=== PATIENT | female | born 2000 | race Caucasian/White ===

== ENCOUNTER 2020-06-23 11:06 | Emergency (ER) | payer OTHER, BC ==
[~2020-06-23] VITALS: Ht 170.2 cm; Wt 121.8 kg
[2020-06-23 11:06] VITALS: BP 147/83
[~2020-06-23 11:06] MED LIST: AMOX1TAB11 PO; DOCU-153 PO; HYDR-2761 PO; IBUP-1007 PO
[2020-06-23] MEDS ORDERED: ONDANSETRON PF 4 MG/2 ML VIAL. IVP ONE (11:45)
[2020-06-23] MEDS ORDERED: IV NORMAL SALINE 1000ML BAG 1,000 ML IV SCH (11:45)
[2020-06-23] MEDS ORDERED: MORPHINE SULFATE 4 MG/ML VIAL. IV/SQ PRN ×2 (11:45)
[2020-06-23 11:49] LABS: BASO # 0.1 x10^3/uL (0.0-0.2); BASO % 1 % (0-3); EOS # 0.3 x10^3/uL (0.0-0.7); EOS % 3 % (0-3); HEMATOCRIT 34.6 % (36.0-47.0); HEMOGLOBIN 11.9 g/dL (12.0-15.5); LYMPH # 1.9 x10^3/uL (1.0-4.8); LYMPH % 18 % (24-48); MEAN CORPUSCULAR HEMOGLOBIN 28 pg (25-35); MEAN CORPUSCULAR HGB CONC 35 g/dL (31-37); MEAN CORPUSCULAR VOLUME 81 fL (79-100); MONO # 0.9 x10^3/uL (0.0-1.1); MONO % 9 % (0-9); NEUT # 7.4 x10^3/uL (1.8-7.7); NEUT % 71 % (31-73); PLATELET COUNT 380 x10^3/uL (140-400); RED BLOOD COUNT 4.26 x10^6/uL (3.50-5.40); RED CELL DISTRIBUTION WIDTH 12.9 % (11.5-14.5); WHITE BLOOD COUNT 10.6 x10^3/uL (4.0-11.0)
[2020-06-23 12:10] LABS: CALCIUM 8.6 mg/dL (8.5-10.1); CREATININE 0.7 mg/dL (0.6-1.0); GFR 105.6; POTASSIUM 3.6 mmol/L (3.5-5.1)
[2020-06-23 12:12] LABS: BILIRUBIN,URINE NEGATIVE (NEG); CLARITY,URINE CLEAR; COLOR,URINE YELLOW; NITRITE,URINE NEGATIVE (NEG); PROTEIN,URINE NEGATIVE (NEG-TRACE); UROBILINOGEN,URINE 0.2 mg/dL (0.2 mg/dL)
[2020-06-23 12:15] LABS: BACTERIA,URINE 0 /HPF (0-FEW); RBC,URINE 0 /HPF (0-2)
[2020-06-23 12:16] LABS: ALBUMIN 3.3 g/dL (3.4-5.0); ALBUMIN/GLOBULIN RATIO 0.9 (1.0-1.7); TOTAL BILIRUBIN 0.8 mg/dL (0.2-1.0)
--- NOTE | 2020-06-23 12:22 | RAD ---
Portable supine and upright abdomen. HISTORY: Syncope, recent appendectomy, abdominal pain Portable supine and upright views were taken of the abdomen. The upright view was only semiupright as there is no fluid level noted in the stomach but there is gas and fluid in the stomach. There is a n onspecific gas pattern with small bowel gas in colon gas most consistent with an ileus. A definite sm all bowel obstruction is not identified. I cannot evaluate for free air. Right hemidiaphragm is not e ntirely included on the upright view. IMPRESSION: 1. Limited portable views of the abdomen. 2. Mild small bowel and colon gas probably ileus. Electronically signed by: Luis Torres MD (06/23/2020 12:20 PM) [id number]
--- NOTE | 2020-06-23 13:16 | EKG ---
[facility] [address] [place] [address] Test Date: 2020-06-23 Test Time: 12:18:02 Pat Name: DORON CLARKE Department: Room: Gender: F Neurology Hospitalist: : 2000 Requested By: SANJUANA BAL Order Number: [id number] Reading MD: Measurements Intervals Fletcher Rate: 94 P: 44 NM: 160 QRS: 55 QRSD: 80 T: 37 QT: 338 QTc: 423 Interpretive Statements SINUS RHYTHM NORMAL ECG RI6.02 No previous ECG available for comparison
[2020-06-23] MEDS ORDERED: HYDROcodone/APAP 5/325MG 1 TAB TABLET PO ONE (13:30)
--- NOTE | 2020-06-23 13:52 | PHYS DOC ---
Past Medical History Past Medical History: Anxiety, Other Additional Past Medical Histor: PCOS (SANJUANA BAL CAREER DEVELOPMENT COORDINATOR/TEACHER) Past Surgical History: Appendectomy (SANJUANA BAL CAREER DEVELOPMENT COORDINATOR/TEACHER) Smoking Status: Current Some Day Smoker Alcohol Use: Sober (SANJUANA BAL CAREER DEVELOPMENT COORDINATOR/TEACHER) General Adult EDM: Chief Complaint: POST-OP PROBLEM HPI: HPI: Patient is a 20 year old female who presents the ED today complaining of a presyncope event. Patient is also complaining of generalized abdominal pain. Patient states on 20 June which is roughly 4 days ago she had a laparoscopic appendectomy done at this hospital. She states she was discharged yesterday. She states this morning she woke up and felt dizzy, lightheaded, she states she feels dehydrated. She states she almost passed out. Patient states she has continued to have mild to moderate generalized abdominal pain but well cont rolled with hydrocodone she is taking for pain, she states this pain is similar to the pain she had before the appendectomy. She states the pain is worse on touching her abdomen. I walked into the room while RN was doing an IV. She refused IV requesting the nurse to remove it. (SANJUANA BAL CAREER DEVELOPMENT COORDINATOR/TEACHER) Review of Systems: Review of Systems: Constitutional: Denies fever or chills. [] Eyes: Denies change in visual acuity. [] HENT: Denies nasal congestion or sore throat. [] Respiratory: Denies cough or shortness of breath. [] Cardiovascular: Reports of presyncope episode denies chest pain or edema. [] GI: Reports generalized abdominal pain, denies nausea, vomiting, bloody stools or diarrhea. [] : Denies dysuria. [] Musculoskeletal: Denies back pain or joint pain. [] Integument: Denies rash. [] Neurologic: Denies headache, focal weakness or sensory changes. [] Psychiatric: Denies depression or anxiety. [] (SANUJANA BAL CAREER DEVELOPMENT COORDINATOR/TEACHER) Heart Score: C/O Chest Pain: N/A Risk Factors: Risk Factors: DM, Current or recent (<one month) smoker, HTN, HLP, family history of CAD, obesity. Risk Scores: Score 0 - 3: 2.5% MACE over next 6 weeks - Discharge Home Score 4 - 6: 20.3% MACE over next 6 weeks - Admit for Clinical Observation Score 7 - 10: 72.7% MACE over next 6 weeks - Early Invasive Strategies (SANJUANA BAL CAREER DEVELOPMENT COORDINATOR/TEACHER) Current Medications: Current Medications Medications (Trade) Dose Ordered Sig/Ariella Start Time Stop Time Status Last Admin Dose Admin Acetaminophen/ Hydrocodone Bitart (Lortab 5/325) 2 tab 1X ONCE 06/23/20 13:30 06/23/20 13:31 DC Morphine Sulfate (Morphine Sulfate) 4 mg PRN Q15MIN PRN 06/23/20 11:45 06/24/20 11:44 Ondansetron HCl (Zofran) 4 mg 1X ONCE 06/23/20 11:45 06/23/20 11:46 DC Sodium Chloride 1,000 ml @ 1,860 mls/hr Q33M 06/23/20 11:45 06/23/20 12:45 DC (SANJUANA BAL CAREER DEVELOPMENT COORDINATOR/TEACHER) Allergies: Allergies: Allergies Coded Allergies Type Severity Reaction Last Updated Verified No Known Drug Allergies 06/20/20 No (SANJUANA BAL APRN) Physical Exam: PE: Interval fast Constitutional: Well developed, well nourished, no acute distress, non-toxic appearance. [] HENT: Normocephalic, atraumatic, bilateral external ears normal, oropharynx moist, no oral exudates, nose normal. [] Eyes: PERRLA, EOMI, conjunctiva normal, no discharge. [] Neck: Normal range of motion, no tenderness, supple, no stridor. [] Cardiovascular:Heart rate regular rhythm, no murmur [] Lungs & Thorax: Bilateral breath sounds clear to auscultation [] Abdomen: Rounded abdomen. Abdominal incisions noted consistent with laparotomy appendectomy. No signs of infection. Bowel sounds normal, soft, incisional tenderness on the abdomen, no masses, no pulsatile masses. [] Skin: Warm, dry, no erythema, no rash. [] Back: No tenderness, no CVA tenderness. [] Extremities: No tenderness, no cyanosis, no clubbing, ROM intact, no edema. [] Neurologic: Alert and oriented X 3, normal motor function, normal sensory function, no focal deficits noted. Cranial nerves II through XII intact Psychologic: Affect normal, judgement normal, mood normal. [] (SANJUANA BAL CAREER DEVELOPMENT COORDINATOR/TEACHER) Current Patient Data: Labs: Laboratory Tests Test 06/23/20 11:20 White Blood Count 10.6 x10^3/uL (4.0-11.0) Red Blood Count 4.26 x10^6/uL (3.50-5.40) Hemoglobin 11.9 g/dL (12.0-15.5) L Hematocrit 34.6 % (36.0-47.0) L Mean Corpuscular Volume 81 fL (79-100) Mean Corpuscular Hemoglobin 28 pg (25-35) Mean Corpuscular Hemoglobin Concent 35 g/dL (31-37) Red Cell Distribution Width 12.9 % (11.5-14.5) Platelet Count 380 x10^3/uL (140-400) Neutrophils (%) (Auto) 71 % (31-73) Lymphocytes (%) (Auto) 18 % (24-48) L Monocytes (%) (Auto) 9 % (0-9) Eosinophils (%) (Auto) 3 % (0-3) Basophils (%) (Auto) 1 % (0-3) Neutrophils # (Auto) 7.4 x10^3/uL (1.8-7.7) Lymphocytes # (Auto) 1.9 x10^3/uL (1.0-4.8) Monocytes # (Auto) 0.9 x10^3/uL (0.0-1.1) Eosinophils # (Auto) 0.3 x10^3/uL (0.0-0.7) Basophils # (Auto) 0.1 x10^3/uL (0.0-0.2) Urine Collection Type Unknown Urine Color Yellow Urine Clarity Clear Urine pH 8.0 (<5.0-8.0) Urine Specific [place] 1.010 (1.000-1.030) Urine Protein Negative mg/dL (NEG-TRACE) Urine Glucose (UA) Negative mg/dL (NEG) Urine Ketones (Stick) Negative mg/dL (NEG) Urine Blood Negative (NEG) Urine Nitrite Negative (NEG) Urine Bilirubin Negative (NEG) Urine Urobilinogen Dipstick 0.2 mg/dL (0.2 mg/dL) Urine Leukocyte Esterase Negative (NEG) Urine RBC 0 /HPF (0-2) Urine WBC 1-4 /HPF (0-4) Urine Squamous Epithelial Cells Many /LPF Urine Bacteria 0 /HPF (0-FEW) Urine Mucus Slight /LPF Sodium Level 140 mmol/L (136-145) Potassium Level 3.6 mmol/L (3.5-5.1) Chloride Level 103 mmol/L (98-107) Carbon Dioxide Level 26 mmol/L (21-32) Anion Gap 11 (6-14) Blood Urea Nitrogen 7 mg/dL (7-20) Creatinine 0.7 mg/dL (0.6-1.0) Estimated GFR (Cockcroft-Gault) 105.6 BUN/Creatinine Ratio 10 (6-20) Glucose Level 102 mg/dL (70-99) H Lactic Acid Level 1.5 mmol/L (0.4-2.0) Calcium Level 8.6 mg/dL (8.5-10.1) Total Bilirubin 0.8 mg/dL (0.2-1.0) Aspartate Amino Transferase (AST) 65 U/L (15-37) H Alanine Aminotransferase (ALT) 113 U/L (14-59) H Alkaline Phosphatase 51 U/L (46-116) Troponin I Quantitative < 0.017 ng/mL (0.000-0.055) FQ-Wef-S-Type Natriuretic Peptide 240 pg/mL (0-124) H Total Protein 7.0 g/dL (6.4-8.2) Albumin 3.3 g/dL (3.4-5.0) L Albumin/Globulin Ratio 0.9 (1.0-1.7) L Procalcitonin < 0.10 ng/mL (0.00-0.10) Laboratory Tests 06/23/20 11:20 Laboratory Tests 06/23/20 11:20 Vital Signs: Vital Signs Date Time Temp Pulse Resp B/P (MAP) Pulse Ox O2 Delivery O2 Flow Rate FiO2 06/23/20 11:06 97.5 95 16 147/83 (104) 99 Room Air 97.5 (SANJUANA BAL CAREER DEVELOPMENT COORDINATOR/TEACHER) EKG: EK interpreted by Dr. Parson sinus rhythm heart rate 94 no STEMI [] (SANJUANA BAL CAREER DEVELOPMENT COORDINATOR/TEACHER) Radiology/Procedures: Radiology/Procedures: []PROCEDURE: ABDOMEN SUPINE & UPRIGHT Portable supine and upright abdomen. HISTORY: Syncope, recent appendectomy, abdominal pain Portable supine and upright views were taken of the abdomen. The upright view was only semiupright as there is no fluid level noted in the stomach but there is gas and fluid in the stomach. There is a nonspecific gas pattern with small bowel gas in colon gas most consistent with an ileus. A definite small bowel obstruction is not identified. I cannot evaluate for free air. Right antoinette diaphragm is not entirely included on the upright view. IMPRESSION: 1. Limited portable views of the abdomen. 2. Mild small bowel and colon gas probably ileus. Electronically signed by: Luis Torres MD (06/23/2020 12:20 PM) [id number] DICTATED and SIGNED BY: LUIS TORRES MD DATE: 06/23/20 [id number] (SANJUANA BAL CAREER DEVELOPMENT COORDINATOR/TEACHER) Course & Med Decision Making: Course & Med Decision Making Pertinent Labs and Imaging studies reviewed. (See chart for details) This is a 20-year-old female patient presented to the ED today complaining of a presyncope event as well as abdominal pain. Patient had laparoscopic append ectomy done 06/20/2020 and was discharged from the hospital yesterday. Patient refused IV in the ED. Labs were negative for any acute findings. Acute abdominal series was noted for an ileus. Spoke to patient about management of this ileus especially the need to mobilize, push fluids, increase dietary fiber intake, take MiraLAX and a stool softener. They have been recommended if she can take milk of magnesium today. Spoke with Dr. Simpson. Patient should follow-up in clinic next week (SANJUANA BAL CAREER DEVELOPMENT COORDINATOR/TEACHER) Dragon Disclaimer: Dragon Disclaimer: This electronic medical record was generated, in whole or in part, using a voice recognition dictation system. (SANJUANA BAL CAREER DEVELOPMENT COORDINATOR/TEACHER) Departure Departure Impression: Primary Impression: Pre-syncope Additional Impressions: Dehydration Ileus Disposition: 01 DC HOME SELF CARE/HOMELESS Condition: STABLE Referrals: NO PCP (PCP) MAYNOR SIMPSON MD follow up next week Patient Instructions: Abdominal Pain, Dehydration, Adult, [id number], Ileus Additional Instructions: Please try and push fluids, you were noted to have an illeus, this condition is very common after people having surgery. Their bowels start to slow down as they get constipated. We encourage you to get up and move frequently. We encourage you to increase your dietary fiber intake. Consider taking MiraLAX d aily as well as a stool softener. You may consider taking milk of magnesium today. Please follow-up with Dr. Simpson next week. Come back to the emergency room at any point symptoms worsen. Attending Signature Attending Signature I have reviewed the PA/PROFESSOR OF SPORT MANAGEMENT's note and plan of care. I was available for consultation as needed during the patient's visit in the emergency department. I agree with the clinical impression, plan, and disposition. (CLAYTON PARSON DO) SANJUANA BAL CAREER DEVELOPMENT COORDINATOR/TEACHER Jun 23, 2020 13:52 CLAYTON PARSON DO Jun 25, 2020 16:17
== END 2020-06-23 14:36 | disposition home or self-care (01) ==
LOC: ER 11:06
DX: K56.7 Ileus, unspecified (principal); E86.0 Dehydration; R55 Syncope and collapse; R42 Dizziness and giddiness; F41.9 Anxiety disorder, unspecified; Z90.89 Acquired absence of other organs; Z87.891 Personal history of nicotine dependence
CPT/HCPCS: 36415; 74021; 80053; 81001; 83605; 83880; 84145; 84484; 85025; 87040; 93005; 99285

== ENCOUNTER 2020-11-22 05:11 | Emergency (ER) | payer OTHER, BC ==
[~2020-11-22] VITALS: Ht 170.2 cm; Wt 130.0 kg
[~2020-11-22 05:11] MED LIST changes: +DOCU-148 PO; -DOCU-153 PO
[2020-11-22] MEDS ORDERED: IV NORMAL SALINE 1000ML BAG 1,000 ML IV ONE (05:45)
--- NOTE | 2020-11-22 05:58 | PHYS DOC ---
Past Medical History Past Medical History: Anxiety, Other Additional Past Medical Histor: PCOS, Fatty liver nonalcoholic (SADE JACOBS DO) Past Surgical History: Appendectomy (SADE JACOBS DO) Smoking Status: Never Smoker Alcohol Use: None (SADE JACOBS DO) General Adult EDM: Chief Complaint: WEAKNESS/GENERALIZED HPI: HPI: Patient is a 20 year old female who was brought here by EMS from her work after she experienced an episode of nausea vomiting with generalized weakness. 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 Patient has been at work for about 11-hours, she will be done at 6:30 AM. Patient certainly felt nauseous, vomited one time then start to have generalized weakness. Patient feels like both her upper and lower extremities are heavy, she could not lift them up. Patient denies any headache, patient denies any slurred speech, denies any memory problems, denies any blurry vision. Patient has history of polycystic ovarian syndrome. She denies any history of diabetic. (SADE JACOBS DO) Review of Systems: Review of Systems: Constitutional: Denies fever or chills. [] Eyes: Denies change in visual acuity. [] HENT: Denies nasal congestion or sore throat. [] Respiratory: Denies cough or shortness of breath. [] Cardiovascular: Denies chest pain or edema. [] GI: Denies abdominal pain, bloody stools or diarrhea. Positive for nausea vomiting : Denies dysuria. [] Musculoskeletal: Denies back pain or joint pain. [] Integument: Denies rash. [] Neurologic: Denies headache, focal weakness or sensory changes. [] Endocrine: Positive for generalized weakness Lymphatic: Denies swollen glands. [] Psychiatric: Denies depression or anxiety. [] (SADE JACOBS DO) Heart Score: C/O Chest Pain: N/A Risk Factors: Risk Factors: DM, Current or recent (<one month) smoker, HTN, HLP, family history of CAD, obesity. Risk Scores: Score 0 - 3: 2.5% MACE over next 6 weeks - Discharge Home Score 4 - 6: 20.3% MACE over next 6 weeks - Admit for Clinical Observation Score 7 - 10: 72.7% MACE over next 6 weeks - Early Invasive Strategies (SADE JACOBS DO) Allergies: Allergies: Allergies Coded Allergies Type Severity Reaction Last Updated Verified No Known Drug Allergies 06/20/20 No (SADE JACOBS DO) Physical Exam: PE: Constitutional: Well developed, well nourished, no acute distress, non-toxic appearance. [] HENT: Normocephalic, atraumatic, bilateral external ears normal, oropharynx moist, no oral exudates, nose normal. [] Eyes: PERRLA, EOMI, conjunctiva normal, no discharge. [] Neck: Normal range of motion, no tenderness, supple, no stridor. [] Cardiovascular:Heart rate regular rhythm, no murmur [] Lungs & Thorax: Bilateral breath sounds clear to auscultation [] Abdomen: Bowel sounds normal, soft, no tenderness, no masses, no pulsatile masses. [] Skin: Warm, dry, no erythema, no rash. [] Back: No tenderness, no CVA tenderness. [] Extremities: No tenderness, no cyanosis, no clubbing, ROM intact, no edema. [] Neurologic: Alert and oriented X 3,normal sensory function, no focal deficits noted. Patient can move all extremities but very slow and weak. Normal speech Psychologic: Affect normal, judgement normal, mood normal. [] (SADE JACOBS DO) Current Patient Data: Vital Signs: Vital Signs Date Time Temp Pulse Resp B/P (MAP) Pulse Ox O2 Delivery O2 Flow Rate FiO2 11/22/20 05:18 98.4 103 139/69 (104) 97 Room Air 98.4 (SADE JACOBS DO) EKG: EKG: [] (SADE JACOBS DO) Radiology/Procedures: Radiology/Procedures: [] (SADE JACOBS DO) Course & Med Decision Making: Course & Med Decision Making Pertinent Labs and Imaging studies reviewed. (See chart for details) Patient is a 20-year-old female who was brought here by EMS from her workplace due to generalized weakness. Patient is awake alert oriented, she had normal speech, patient had normal sensation, patient has generalized weakness. Patient care was endorsed to the incoming physician at shift change Dr. Jannie Krause. (SADE JACOBS DO) Course & Med Decision Making I assumed care from Dr. Jacobs at 0 600, pending lab work Patient was reassessed at 0 810, patient states she feels much better, she says she is appropriate for discharge and will follow up with her primary care doctor. She has no acute concerns at this time Laboratory Tests Test 11/22/20 05:53 11/22/20 07:39 11/22/20 07:45 White Blood Count 11.5 x10^3/uL (4.0-11.0) Red Blood Count 4.95 x10^6/uL (3.50-5.40) Hemoglobin 14.1 g/dL (12.0-15.5) Hematocrit 40.2 % (36.0-47.0) Mean Corpuscular Volume 81 fL (79-100) Mean Corpuscular Hemoglobin 29 pg (25-35) Mean Corpuscular Hemoglobin Concent 35 g/dL (31-37) Red Cell Distribution Width 13.8 % (11.5-14.5) Platelet Count 399 x10^3/uL (140-400) Neutrophils (%) (Auto) 62 % (31-73) Lymphocytes (%) (Auto) 27 % (24-48) Monocytes (%) (Auto) 9 % (0-9) Eosinophils (%) (Auto) 2 % (0-3) Basophils (%) (Auto) 1 % (0-3) Neutrophils # (Auto) 7.1 x10^3/uL (1.8-7.7) Lymphocytes # (Auto) 3.0 x10^3/uL (1.0-4.8) Monocytes # (Auto) 1.0 x10^3/uL (0.0-1.1) Eosinophils # (Auto) 0.2 x10^3/uL (0.0-0.7) Basophils # (Auto) 0.1 x10^3/uL (0.0-0.2) Sodium Level 139 mmol/L (136-145) Potassium Level 3.8 mmol/L (3.5-5.1) Chloride Level 102 mmol/L (98-107) Carbon Dioxide Level 28 mmol/L (21-32) Anion Gap 9 (6-14) Blood Urea Nitrogen 10 mg/dL (7-20) Creatinine 0.9 mg/dL (0.6-1.0) Estimated GFR (Cockcroft-Gault) 79.0 BUN/Creatinine Ratio 11 (6-20) Glucose Level 119 mg/dL (70-99) Calcium Level 8.9 mg/dL (8.5-10.1) Magnesium Level 1.9 mg/dL (1.8-2.4) Total Bilirubin 0.4 mg/dL (0.2-1.0) Aspartate Amino Transf (AST/SGOT) 39 U/L (15-37) Alanine Aminotransferase (ALT/SGPT) 95 U/L (14-59) Alkaline Phosphatase 74 U/L (46-116) Total Protein 7.3 g/dL (6.4-8.2) Albumin 3.8 g/dL (3.4-5.0) Albumin/Globulin Ratio 1.1 (1.0-1.7) Lipase 86 U/L (73-393) Urine Collection Type Unknown Urine Color Yellow Urine Clarity Clear Urine pH 5.5 (<5.0-8.0) Urine Specific [place] 1.025 (1.000-1.030) Urine Protein Negative mg/dL (NEG-TRACE) Urine Glucose (UA) Negative mg/dL (NEG) Urine Ketones (Stick) 15 mg/dL (NEG) Urine Blood Negative (NEG) Urine Nitrite Negative (NEG) Urine Bilirubin Negative (NEG) Urine Urobilinogen Dipstick 0.2 mg/dL (0.2 mg/dL) Urine Leukocyte Esterase Negative (NEG) Urine RBC Occ /HPF (0-2) Urine WBC 5-10 /HPF (0-4) Urine Squamous Epithelial Cells Many /LPF Urine Bacteria Few /HPF (0-FEW) Urine Mucus Mod /LPF Urine Yeast Present /HPF Bedside Urine HCG, Qualitative Hcg negative (Negative) (JANNIE KRAUSE DO) Norberto Disclaimer: Norberto Disclaimer: This electronic medical record was generated, in whole or in part, using a voice recognition dictation system. (SADE JACOBS DO) Departure Departure Impression: Primary Impression: Generalized weakness Disposition: 01 HOME / SELF CARE / HOMELESS Condition: STABLE Referrals: NO PCP (PCP) Patient Instructions: Weakness, Dece-ly-Qiwk Additional Instructions: You were seen in the emergency department and your health condition was deemed not to require admission to the hospital. It is important to realize that we can only evaluate you during the time that you are in her department. Occasionally health conditions can worsen upon leaving the emergency department. If this were to happen, please return to and allow us the opportunity to reevaluate you. It is a pleasure to take care of your health needs. Return to the ER if your symptoms worsen, do not improve, or if you develop additional symptoms that are concerning to you SADE JACOBS DO Nov 22, 2020 05:58 JANNIE KRAUSE DO Nov 22, 2020 08:16
[2020-11-22 06:06] LABS: BASO # 0.1 x10^3/uL (0.0-0.2); BASO % 1 % (0-3); EOS # 0.2 x10^3/uL (0.0-0.7); EOS % 2 % (0-3); HEMATOCRIT 40.2 % (36.0-47.0); HEMOGLOBIN 14.1 g/dL (12.0-15.5); LYMPH % 27 % (24-48); MEAN CORPUSCULAR HEMOGLOBIN 29 pg (25-35); MEAN CORPUSCULAR HGB CONC 35 g/dL (31-37); MEAN CORPUSCULAR VOLUME 81 fL (79-100); MONO % 9 % (0-9); NEUT # 7.1 x10^3/uL (1.8-7.7); NEUT % 62 % (31-73); PLATELET COUNT 399 x10^3/uL (140-400); RED BLOOD COUNT 4.95 x10^6/uL (3.50-5.40); RED CELL DISTRIBUTION WIDTH 13.8 % (11.5-14.5); WHITE BLOOD COUNT 11.5 x10^3/uL (4.0-11.0)
[2020-11-22 06:14] LABS: CALCIUM 8.9 mg/dL (8.5-10.1); CREATININE 0.9 mg/dL (0.6-1.0); POTASSIUM 3.8 mmol/L (3.5-5.1)
[2020-11-22 06:20] LABS: ALBUMIN 3.8 g/dL (3.4-5.0); ALBUMIN/GLOBULIN RATIO 1.1 (1.0-1.7); MAGNESIUM 1.9 mg/dL (1.8-2.4); TOTAL BILIRUBIN 0.4 mg/dL (0.2-1.0); TOTAL PROTEIN 7.3 g/dL (6.4-8.2)
[2020-11-22 07:52] LABS: BILIRUBIN,URINE NEGATIVE (NEG); CLARITY,URINE CLEAR; COLOR,URINE YELLOW; NITRITE,URINE NEGATIVE (NEG); PH,URINE 5.5 (<5.0-8.0); PROTEIN,URINE NEGATIVE (NEG-TRACE); UROBILINOGEN,URINE 0.2 mg/dL (0.2 mg/dL)
[2020-11-22 08:08] LABS: BACTERIA,URINE FEW /HPF (0-FEW); RBC,URINE OCC /HPF (0-2); YEAST,URINE PRESENT /HPF
[2020-11-22 08:20] VITALS: BP 114/57
== END 2020-11-22 08:32 | disposition home or self-care (01) ==
LOC: ER 05:11
DX: R53.1 Weakness (principal); R11.2 Nausea with vomiting, unspecified; Z90.89 Acquired absence of other organs
CPT/HCPCS: 36415; 80053; 81001; 81025; 83690; 83735; 85025; 87086; 96360; 99283; J7030